=== PATIENT | male | born 1970 | race Hispanic/Latino ===

== ENCOUNTER 2017-02-16 20:37 | Emergency (ER) | payer MEDICARE, OTHER ==
[2017-02-16 21:04] VITALS: BMI 40.8
[2017-02-16 21:08] VITALS: TEMP 99.4
--- NOTE | 2017-02-16 21:34 | ED PDOC ---
Arrival/HPI - General Chief Complaint: Flu-like Symptoms Time Seen by Provider: 02/16/17 20:44 Historian: Patient - History of Present Illness Narrative History of Present Illness (Text): 02/16/17 21:33 Ant Martinez is a 46 year old male, whose past medical history includes diabetes, hypothyroidism, and Hodgkin's disease, who presents to the Emergency department complaining of flu-like symptoms. Patient states he has been experiencing chills, subjective fever, diffuse body aches, and cough for her past few days. Patient denies any chest pain, shortness of breath, nausea, vomiting, diarrhea, urinary symptoms, back pain, neck pain, headache, dizziness , or any other complaints. Time/Duration: Other (few days) Symptom Onset: Gradual Symptom Course: Unchanged Activities at Onset: Rest, Light Context: Home Past Medical History - Provider Review Nursing Documentation Reviewed: Yes - Infectious Disease Hx of Infectious Diseases: None - Tetanus Immunization Tetanus Immunization: Unknown - Cardiac Hx Cardiac Disorders: No - Pulmonary Hx Asthma: Yes (1989) - Neurological Hx Neurological Disorder: No - HEENT Hx HEENT Disorder: No - Renal Other/Comment: neuropathy of Right foot - Endocrine/Metabolic Hx Diabetes Mellitus Type 1: Yes Hx Hypothyroidism: Yes - Hematological/Oncological Hx Cancer: Yes (hodgkins 2002 in remission) Other/Comment: Fatty liver. elevated liver enzymes - Musculoskeletal/Rheumatological Hx Falls: No - Gastrointestinal Hx Gastrointestinal Disorders: Yes (elevated liver enzymes) - Psychiatric Hx Anxiety: Yes Hx Depression: Yes Hx Substance Use: No - Surgical History Other/Comment: radiation of neck and other bodies - Anesthesia Hx Anesthesia: Yes Hx Anesthesia Reactions: No Hx Malignant Hyperthermia: No - Suicidal Assessment Feels Threatened In Home Enviroment: No Family/Social History - Physician Review Nursing Documentation Reviewed: Yes Family/Social History: No Known Family HX Smoking Status: Never Smoked Hx Alcohol Use: No Hx Substance Use: No Hx Substance Use Treatment: No Allergies/Home Meds Allergies/Adverse Reactions: Allergies No Known Allergies Allergy (Verified 09/17/14 18:02) Home Medications: Home Meds Medication Instructions Recorded Confirmed Escitalopram Oxalate [Lexapro] 10 mg PO DAILY 04/08/12 09/17/14 Ezetimibe [Zetia] 10 mg PO DAILY 04/08/12 09/17/14 Insulin Glargine,Hum.rec.anlog 200 unit SC DAILY 04/08/12 09/17/14 [Lantus] Lansoprazole [Prevacid] 30 mg PO DAILY 04/08/12 09/17/14 Novalog Insulin 60 units SC TID 04/08/12 09/17/14 Levothyroxine Sodium [Levoxyl] 0.175 mg PO DAILY 09/17/14 09/17/14 MetFORMIN [glucoPHAGE] 1,000 mg PO BID 09/17/14 09/17/14 Pregabalin [Lyrica] 100 mg PO BID 09/17/14 09/17/14 Review of Systems - Physician Review All systems were reviewed & negative as marked: Yes - Review of Systems Constitutional: Other (+chills) Eyes: Normal ENT: Other (+flu-like symptoms) Respiratory: Cough. absent: SOB Cardiovascular: Chest Pain Gastrointestinal: Normal. absent: Abdominal Pain, Diarrhea, Nausea, Vomiting Genitourinary Male: Normal. absent: Dysuria, Frequency, Hematuria, Urinary Output Changes Musculoskeletal: Myalgias (+diffuse body aches). absent: Back Pain, Neck Pain Skin: Normal. absent: Rash Neurological: Normal. absent: Headache, Dizziness Endocrine: Normal Hemo/Lymphatic: Normal Psychiatric: Normal Physical Exam Vital Signs Reviewed: Yes Vital Signs Temp Pulse Resp BP Pulse Ox 02/16/17 23:14 18 96 02/16/17 23:12 97 H 17 109/62 93 L 02/16/17 22:07 99 H 18 96/66 L 93 L 02/16/17 21:07 99.4 F 106 H 18 91/58 L 93 L Temperature: Afebrile Blood Pressure: Hypotensive Pulse: Tachycardic Respiratory Rate: Normal Appearance: Positive for: Well-Appearing, Non-Toxic, Comfortable Pain Distress: None Mental Status: Positive for: Alert and Oriented X 3 - Systems Exam Head: Present: Atraumatic, Normocephalic Pupils: Present: PERRL Extroacular Muscles: Present: EOMI Conjunctiva: Present: Normal Mouth: Present: Moist Mucous Membranes Neck: Present: Normal Range of Motion Respiratory/Chest: Present: Clear to Auscultation, Good Air Exchange. No: Respiratory Distress, Accessory Muscle Use Cardiovascular: Present: Regular Rate and Rhythm, Normal S1, S2. No: Murmurs Abdomen: Present: Normal Bowel Sounds. No: Tenderness, Distention, Peritoneal Signs Back: Present: Normal Inspection Upper Extremity: Present: Normal Inspection. No: Cyanosis, Edema Lower Extremity: Present: Normal Inspection. No: Edema Neurological: Present: GCS=15, CN II-XII Intact, Speech Normal Skin: Present: Warm, Dry, Normal Color. No: Rashes Psychiatric: Present: Alert, Oriented x 3, Normal Insight, Normal Concentration Medical Decision Making ED Course and Treatment: 02/16/17 21:33 Impression: 46 year old male complaining of flu-like symptoms for the past few days. Differential Diagnosis include but are not limited to: influenza Plan: -- EKG -- Chest X-ray -- Labs, VBG, rapid influenza, -- Urinalysis -- IV fluids -- Reassess and disposition Prior Visits: Notes and results from previous visits were reviewed. On 09/18/2014, pt was seen in the Emergency department for abdominal pain and nausea. Pt was admitted to the hospital for further evaluation. Progress Notes: Reviewed EKG, NSR at [address]-segment elevations or depressions, no T-wave inversions, normal intervals. 02/16/17 23:54 Reviewed radiology, Chest X-ray shows no active disease. 02/17/17 00:08 Reviewed labs, positive for influenza B. 02/17/17 02:18 On re-evaluation, the patient feels better and is in no acute distress. I have discussed the results and plan with the patient, who expresses understanding. Patient in agreement with plan to discharged home. Patient is stable for discharge. Patient was instructed to follow up with physician/clinic in 1-2 days or return if symptoms worsen or new concerning symptoms arise. - Lab Interpretations Lab Results: 02/16/17 22:01 02/17/17 00:19 Lab Results 02/17/17 01:38: pO2 127 H, VBG pH 7.37, VBG pCO2 45.0, VBG HCO3 26.0, VBG Total CO2 27.4, VBG O2 Sat (Calc) 97.8 H, VBG Base Excess 0.3, VBG Potassium 4.7, Sodium 135.0, Chloride 105.0, Glucose 90, Lactate 1.0, FiO2 21.0, Venous Blood Potassium 4.7 02/17/17 00:19: Potassium 4.9 02/16/17 23:59: Urine Color Yellow, Urine Appearance Clear, Urine pH 6.0, Ur Specific [place] 1.025, Urine Protein Negative, Urine Glucose (UA) Negative, Urine Ketones Negative, Urine Blood Negative, Urine Nitrate Negative, Urine Bilirubin Negative, Urine Urobilinogen 0.2, Ur Leukocyte Esterase Negative 02/16/17 23:42: Influenza Typ A,B (EIA) Pos for influenza b H 02/16/17 22:01: WBC 6.4 D, RBC 4.70, Hgb 12.8 L, Hct 40.6 L, MCV 86.4, MCH 27.2 , MCHC 31.5, RDW 13.6, Plt Count 212, MPV 9.7, Gran % 54.0, Lymph % (Auto) 33.7 , Terry % (Auto) 9.4 H, Eos % (Auto) 2.7, Baso % (Auto) 0.2, Gran # 3.47, Lymph # 2.2, Terry # 0.6, Eos # 0.2, Baso # 0.01, PT 11.1, INR 1.03, APTT 30.7, pO2 51 , VBG pH 7.33, VBG pCO2 53.0, VBG HCO3 27.9, VBG Total CO2 29.5 H, VBG O2 Sat ( Calc) 86.9 H, VBG Base Excess 1.0, VBG Potassium 5.7 H, Sodium 134.0, Chloride 102.0, Glucose 237 H, Lactate 1.8, FiO2 21.0, Potassium 5.5 H, Carbon Dioxide 25 , Anion Gap 16, BUN 32 H, Creatinine 1.3, Est GFR ( Amer) > 60, Est GFR ( Non-Af Amer) 59, Random Glucose 226 H, Calcium 8.9, Total Bilirubin 0.5, AST 125 H, ALT 103 H, Alkaline Phosphatase 117, Total Protein 8.9 H, Albumin 3.6, Globulin 5.3, Albumin/Globulin Ratio 0.7 L, Venous Blood Potassium 5.7 H I have reviewed the lab results: Yes - RAD Interpretation Radiology Orders: 02/16/17 21:44 CHEST PORTABLE [RAD] Stat Supervisor Offset Plate Preparation: ED Physician - EKG Interpretation Interpreted by ED Physician: Yes Type: 12 lead EKG - Medication Orders Current Medication Orders: Discontinued Medications Sodium Chloride (Sodium Chloride 0.9%) 1,000 mls @ 999 mls/hr IV .Q1H1M STA Stop: 02/16/17 22:45 Last Admin: 02/16/17 22:09 Dose: 999 MLS/HR eMAR Start Stop Document 02/16/17 22:09 (Rec: 02/16/17 22:09 MR [id number]) Intravenous Solution Start Date 02/16/17 Start Time 22:09 End Date 02/16/17 End time 23:09 Total Infusion Time 60 Oseltamivir Phosphate (Tamiflu Cap) 75 mg PO ONCE ONE PRN Reason: Protocol Stop: 02/17/17 00:37 Last Admin: 02/17/17 00:47 Dose: 75 MG - Scribe Statement The provider has reviewed the documentation as recorded by the Jay Contreras Provider Attestation: All medical record entries made by the Jay were at my direction and personally dictated by me. I have reviewed the chart and agree that the record accurately reflects my personal performance of the history, physical exam, medical decision making, and the department course for this patient. I have also personally directed, reviewed, and agree with the discharge instructions and disposition. Disposition/Present on Arrival - Present on Arrival Any Indicators Present on Arrival: No History of DVT/PE: No History of Uncontrolled Diabetes: No Urinary Catheter: No History of Decub. Ulcer: No History Surgical Site Infection Following: None - Disposition Have Diagnosis and Disposition been Completed?: Yes Diagnosis: Influenza B Disposition: HOME/ ROUTINE Disposition Time: 02:18 Patient Plan: Discharge Patient Problems: Current Active Problems Problem Status Diagnosed Influenza B Acute Condition: GOOD Discharge Instructions (ExitCare): Influenza (ED) Additional Instructions: Drink plenty of liquids/take meds as prescribed/follow up with your doctor this week Prescriptions: Oseltamivir [Tamiflu] 75 mg PO BID #10 cap Referrals: Jake Koo MD [Primary Care Provider] - Follow up with primary
[2017-02-16] MEDS ORDERED: Sodium Chloride 0.9% 1,000 ML IV STA (21:45)
[2017-02-16 22:11] LABS: ADD MANUAL DIFF? NO
[2017-02-16 22:15] LABS: VENOUS BLOOD PH 7.33 (7.32-7.43)
[2017-02-16 22:16] LABS: BASO # 0.01 K/mm3 (0.0-2.0); BASO % 0.2 % (0.0-3.0); EOS # 0.2 (0.0-0.7); EOS % 2.7 % (1.5-5.0); GRAN # 3.47 (1.4-6.5); HEMATOCRIT 40.6 % (42.0-52.0); LYMPH # 2.2 (1.2-3.4); LYMPH % 33.7 % (22.0-35.0); MEAN CELL VOLUME 86.4 fL (80.0-105.0); MEAN CORPUSCULAR HEMOGLOBIN 27.2 pg (25.0-35.0); MEAN CORPUSCULAR HGB CONC 31.5 g/dl (31.0-37.0); MEAN PLATELET VOLUME 9.7 fl (7.0-11.0); MONO # 0.6 (0.1-0.6); MONO % 9.4 % (1.0-6.0); PLATELET COUNT 212 10^3/uL (120.0-450.0); RED CELL DISTRIBUTION WIDTH 13.6 % (11.5-14.5); WHITE BLOOD COUNT 6.4 10^3/ul (4.5-11.0)
[2017-02-16 22:25] LABS: ALB/GLOB RATIO 0.7 (1.1-1.8); ALKALINE PHOSPHATASE 117 U/L (38-133); ALT/SGPT 103 U/L (7-56); AST/SGOT 125 U/L (15-59); BILIRUBIN,TOTAL 0.5 mg/dL (0.2-1.3); BLOOD UREA NITROGEN 32 mg/dL (7-21); CALCIUM 8.9 mg/dL (8.4-10.5); CARBON DIOXIDE 25 mmol/L (21-33); CHLORIDE 98 mmol/L (98-107); GFR AFRICAN-AMERICAN > 60; GLUCOSE,RANDOM 226 mg/dL (70-110); SODIUM 133 mmol/L (132-148); TOTAL PROTEIN 8.9 g/dL (5.8-8.3)
[2017-02-16 22:28] LABS: POTASSIUM 5.5 mmol/L (3.6-5.0)
[2017-02-16 22:32] LABS: INR 1.03 (0.93-1.08); PARTIAL THROMBOPLASTIN TIME 30.7 Seconds (23.7-30.8)
[2017-02-16 23:13] VITALS: BP 109/62; PULSE 97
[2017-02-16 23:15] VITALS: RESP 18; O2SAT 96
[2017-02-17 01:16] LABS: URINE BILIRUBIN NEGATIVE (NEGATIVE); URINE BLOOD NEGATIVE (NEGATIVE); URINE GLUCOSE (UA) NEGATIVE (NEGATIVE); URINE KETONE NEGATIVE (NEGATIVE); URINE LEUKOCYTE ESTERASE NEGATIVE Leu/uL (NEGATIVE); URINE PROTEIN NEGATIVE mg/dL (<30 mg/dL); URINE UROBILINOGEN 0.2 E.U./dL (<1 E.U./dL)
[2017-02-17 01:18] LABS: URINE APPEARANCE CLEAR (CLEAR); URINE COLOR YELLOW (YELLOW)
[2017-02-17 01:57] LABS: VENOUS BLOOD GAS BASE EXCESS 0.3 mmol/L (0.0-2.0); VENOUS BLOOD PH 7.37 (7.32-7.43)
--- NOTE | 2017-02-17 08:06 | RAD ---
HISTORY: Sepsis Patient COMPARISON: No prior. FINDINGS: LUNGS: The lungs are clear. PLEURA: No significant pleural effusion identified, no pneumothorax apparent. CARDIOVASCULAR: Normal. OSSEOUS STRUCTURES: No significant abnormalities. VISUALIZED UPPER ABDOMEN: Normal. OTHER FINDINGS: None. IMPRESSION: No active pulmonary disease.
--- NOTE | 2017-02-17 16:24 | CARD ---
APPROVED REPORT EKG Measurement Heart [id number] <Conclusion> Normal sinus rhythm Normal ECG
== END 2017-02-17 03:12 | disposition home or self-care (01) ==
LOC: ED 20:37
DX: J11.1 Influenza due to unidentified influenza virus with other respiratory manifestations (principal); C81.90 Hodgkin lymphoma, unspecified, unspecified site
CPT/HCPCS: 71010; 80053; 81003; 82803; 84132; 85025; 85610; 85730; 87804; 93005; 96360; 99284; J7040